=== PATIENT | female | born 1980 | race African-American/Black ===

== ENCOUNTER 2016-09-26 20:01 | Emergency (ER) | payer MEDICAID ==
[~2016-09-26] VITALS: Ht 157.5 cm; Wt 58.0 kg
[~2016-09-26 20:01] MED LIST: LOMO PO; Z.0.NO CURRENT MEDS; ZOFR4TAB3 SL
[2016-09-26 20:02] VITALS: BP 128/75; PULSE 96; RESP 18; TEMP 97.9; O2SAT 100
--- NOTE | 2016-09-26 20:54 | RADRPT ---
EXAM DATE/TIME: 09/26/2016 20:42 [place] COMPARISON: No previous studies available for comparison. EXTERNAL COMPARISON : INDICATIONS : Left sided chest pain. MEDICAL HISTORY : None. SURGICAL HISTORY : None. ENCOUNTER: Initial ACUITY: 4 - 6 days PAIN SCORE: 9/10 LOCATION: Left chest FINDINGS: A single view of the chest demonstrates the lungs to be symmetrically aerated without evidence of mas s, infiltrate or effusion. The cardiomediastinal contours are unremarkable. Osseous structures are intact. CONCLUSION: Normal examination. Tyler Lebron MD on September 26, 2016 at 20:52 Board Certified Radiologist. This report was verified electronically.
[2016-09-26 20:57] LABS: AUTOMATED NEUTROPHIL # 4.4 TH/MM3 (1.8-7.7); BASOPHIL # 0.1 TH/MM3 (0-0.2); BASOPHIL % 1.1 % (0.0-2.0); EOSINOPHIL # 0.1 TH/MM3 (0-0.4); EOSINOPHIL % 1.4 % (0.0-4.0); HEMATOCRIT 31.3 % (35.0-46.0); HEMO FLAGS DIFF FINAL; LYMPH % 29.3 % (9.0-44.0); LYMPHOCYTE # 2.3 TH/MM3 (1.0-4.8); MEAN CELL VOLUME 81.5 FL (80.0-100.0); MEAN CORPUSCULAR HEMOGLOBIN 26.8 PG (27.0-34.0); MEAN CORPUSCULAR HGB CONC 32.9 % (32.0-36.0); MONO % 12.1 % (0.0-8.0); NEUT % 56.1 % (16.0-70.0); PLATELET COUNT 263 TH/MM3 (150-450); RED BLOOD COUNT 3.84 MIL/MM3 (4.00-5.30); RED CELL DISTRIBUTION WIDTH 19.1 % (11.6-17.2); WHITE BLOOD COUNT 7.8 TH/MM3 (4.0-11.0)
[2016-09-26 21:18] LABS: APTT (PATIENT) 26.4 SEC (24.3-30.1); PROTHROMBIN TIME - PATIENT 10.9 SEC (9.8-11.6)
[2016-09-26 21:32] LABS: BICARBONATE 26.4 MEQ/L (21.0-32.0); BLOOD UREA NITROGEN 9 MG/DL (7-18); GLOMERULAR FILTRATION RATE 81 ML/MIN (>89)
[2016-09-26 22:00] LABS: ANION GAP 11 MEQ/L (5-15); CHLORIDE 105 MEQ/L (98-107); CREATINE KINASE 179 U/L (26-192); POTASSIUM 3.4 MEQ/L (3.5-5.1); SODIUM (NA) 142 MEQ/L (136-145)
[2016-09-26 22:12] LABS: CKMB LESS THAN 0.5 NG/ML (0.5-3.6)
[2016-09-27 01:32] LABS: CREATINE KINASE 146 U/L (26-192)
[2016-09-27 01:40] VITALS: BP 127/88; PULSE 90; RESP 18; O2SAT 100
[2016-09-27 01:44] LABS: CKMB LESS THAN 0.5 NG/ML (0.5-3.6)
--- NOTE | 2016-09-27 01:57 | PD ---
HPI Chief Complaint: Chest Pain Time Seen by Provider: 23:43 Travel History International Travel<30 days: No Contact w/Intl Traveler<30days: No Traveled to known affect area: No History of Present Illness HPI 35-year-old female states she has been having constant chest pain over the past week. Quality of pain is sharp. Severity is currently resolved. She states she was having it intermittently but then it got constant until it went away. She states sometimes she gets tingly in both her hands when she gets upset. She denies other associated symptoms. She denies prior cardiac issues or family history of heart disease. She denies other specific modifying factors. PFSH Past Medical History Medical History: Denies Significant Hx ?: Not LMP: august 2016 : 3 Para: 2 Tubal Ligation: Yes Past Surgical History Surgical History: No Previous Surgery Social History Alcohol Use: Yes (occ) Tobacco Use: Yes (3-5 cigs per day) Substance Use: No Allergies-Medications (Allergen,Severity, Reaction): Coded Allergies: No Known Allergies (Verified , 09/26/16) Reported Meds & Prescriptions Reported Meds & Active Scripts Active Lomotil (Diphenoxylate HCl/Atropine) 1 Tab Tab 2 Tab PO QIDPRN Zofran ODT (Ondansetron HCl) 4 Mg Tab 4 Mg SL Q6HPRN FOR NAUSEA/VOMITING Reported No Current Meds (Miscellaneous Medication) Misc Review of Systems Except as stated in HPI: all other systems reviewed are Neg Physical Exam Narrative GENERAL: Well-nourished, well-developed patient. SKIN: Warm and dry. HEAD: Normocephalic and atraumatic. EYES: No injection or drainage. ENT: No nasal drainage noted. NECK: Supple, trachea midline. CARDIOVASCULAR: Regular rate and rhythm RESPIRATORY: Breath sounds equal bilaterally. No accessory muscle use. GASTROINTESTINAL: Abdomen soft, non-tender, nondistended. EXTREMITIES: No edema. NEUROLOGICAL: Awake and alert. Motor and sensory grossly within normal limits. Normal speech. Data Data Last Documented VS Vital Signs Date Time Temp Pulse Resp B/P Pulse Ox O2 Delivery O2 Flow Rate FiO2 09/27/16 01:40 90 18 127/88 100 Room Air 09/26/16 20:02 97.9 Orders Electrocardiogram (09/26/16 20:24) Complete Blood Count With Diff (09/26/16 20:24) Basic Metabolic Panel (Bmp) (09/26/16 20:24) Ckmb (Isoenzyme) Profile (09/26/16 20:24) Troponin I (09/26/16 20:24) Chest, Single Ap (09/26/16 20:24) Act Partial Throm Time (Ptt) (09/26/16 20:24) Prothrombin Time / Inr (Pt) (09/26/16 20:24) CKMB (09/26/16 20:35) CKMB% (09/26/16 20:35) D-Dimer (09/26/16 23:43) Electrocardiogram (09/27/16 00:35) Ckmb (Isoenzyme) Profile (09/27/16 00:35) Troponin I (09/27/16 00:35) CKMB (09/27/16 00:52) CKMB% (09/27/16 00:52) Labs Laboratory Tests Test 09/26/16 09/27/16 20:35 00:52 White Blood Count 7.8 TH/MM3 Red Blood Count 3.84 MIL/MM3 Hemoglobin 10.3 GM/DL Hematocrit 31.3 % Mean Corpuscular Volume 81.5 FL Mean Corpuscular Hemoglobin 26.8 PG Mean Corpuscular Hemoglobin 32.9 % Concent Red Cell Distribution Width 19.1 % Platelet Count 263 TH/MM3 Mean Platelet Volume 7.9 FL Neutrophils (%) (Auto) 56.1 % Lymphocytes (%) (Auto) 29.3 % Monocytes (%) (Auto) 12.1 % Eosinophils (%) (Auto) 1.4 % Basophils (%) (Auto) 1.1 % Neutrophils # (Auto) 4.4 TH/MM3 Lymphocytes # (Auto) 2.3 TH/MM3 Monocytes # (Auto) 0.9 TH/MM3 Eosinophils # (Auto) 0.1 TH/MM3 Basophils # (Auto) 0.1 TH/MM3 CBC Comment DIFF FINAL Differential Comment Prothrombin Time 10.9 SEC Prothromb Time International 1.0 RATIO Ratio Activated Partial 26.4 SEC Thromboplast Time Sodium Level 142 MEQ/L Potassium Level 3.4 MEQ/L Chloride Level 105 MEQ/L Carbon Dioxide Level 26.4 MEQ/L Anion Gap 11 MEQ/L Blood Urea Nitrogen 9 MG/DL Creatinine 0.95 MG/DL Estimat Glomerular Filtration 81 ML/MIN Rate Random Glucose 90 MG/DL Calcium Level 8.4 MG/DL Total Creatine Kinase 179 U/L 146 U/L Creatine Kinase MB LESS THAN 0.5 LESS THAN 0.5 NG/ML NG/ML Troponin I LESS THAN 0.02 LESS THAN 0.02 NG/ML NG/ML D-Dimer Quantitative (PE/DVT) 0.39 MG/L FEU MDM Medical Decision Making Medical Screen Exam Complete: Yes Emergency Medical Condition: Yes Medical Record Reviewed: Yes (past history confirmed) Interpretation(s) EKG shows NSR, no ST elevation or depression, and no arrhythmias. No significant T-wave inversions. CBC & BMP Diagram 09/26/16 20:35 Last 24 hours Impressions Chest X-Ray 09/26/162023 Signed Impressions: Service Date/Time: Wednesday, September 26, 2016 20:42 - CONCLUSION: Normal examination. Tyler Lebron MD Differential Diagnosis Atypical cardiac, PE, musculoskeletal, anxiety Narrative Course Will check d-dimer and reevaluate D-dimer is negative, offered chest pain center observation versus repeat troponin with outpatient cardiology follow-up and patient is wanting to go home Repeat troponin is negative,Patient denies any new complaints and states that they are feeling better. Patient happy with care, all questions answered. Patient knows that follow up is incumbent on them and to return to the emergency room immediately if new or worsening symptoms develop. Patient given strict return precautions, vitals reviewed and are normal, agrees to further workup as an outpatient. Diagnosis Primary Impression: Chest pain Qualified Code: R07.9 - Chest pain, unspecified type Patient Instructions: General Instructions Additional Instructions: Tylenol as needed, follow with primary and cardiology, return as needed Med/Other Pt SpecificInfo: No Change to Meds Disposition: DISCHARGE HOME Condition: Stable Kristi Taylor MD Sep 27, 2016 01:57
--- NOTE | 2016-09-27 15:51 | EKG ---
Date Performed: 09/27/2016 Time Performed: 00:48:46 PTAGE: 35 years EKG: Sinus rhythm NONSPECIFIC ST T-WAVE CHANGES PREVIOUS TRACING : 09/26/2016 20.46 DOCTOR: Jose Daniel Escobar Interpretating Date/Time 09/27/2016 15:50:39
--- NOTE | 2016-09-27 15:51 | EKG ---
Date Performed: 09/26/2016 Time Performed: 20:46:15 PTAGE: 35 years EKG: Sinus rhythm NONSPECIFIC ST T-WAVE CHANGES. NO PREVIOUS TRACING DOCTOR: Jose Daniel Escobar Interpretating Date/Time 09/27/2016 15:50:05
== END 2016-09-27 02:09 | disposition home or self-care (01) ==
LOC: NEPE 20:01
DX: R07.9 Chest pain, unspecified (principal); Z72.0 Tobacco use
CPT/HCPCS: 71010; 80048; 82550; 82552; 84484; 85025; 85379; 85610; 85730; 93005